=== PATIENT | male | born 1985 | race Caucasian/White ===

== ENCOUNTER 2023-06-05 05:36 | Emergency (ER) | payer OTHER | END 2023-06-05 06:00 | disposition home or self-care (01) | LOC: CSHERS 05:36 | DX: T14.8XXA Other injury of unspecified body region, initial encounter (principal); L29.9 Pruritus, unspecified; R21 Rash and other nonspecific skin eruption; F17.290 Nicotine dependence, other tobacco product, uncomplicated; W57.XXXA Bitten or stung by nonvenomous insect and other nonvenomous arthropods, initial encounter | CPT/HCPCS: 99282 ==

== ENCOUNTER 2023-06-26 15:20 | Emergency (ER) | payer OTHER ==
[2023-06-26 16:18] LABS: Bilirubin Neg (Negative); Blood, Urine 250 (Negative); Clarity Slightly Cloudy (Clear); Glucose, Urine (Dipstick) Normal (Negative); Ketone, Urine Negative (Negative); Leukocyte Negative (Negative); Nitrite Negative (Negative); Protein, Urine (Dipstick) 15 mg/dl (Neg-Trace); Specific Gravity, Urine 1.025 (1.005-1.030); Urobilinogen Normal mg/dL (Less than 2)
[2023-06-26 17:39] LABS: RBC/HPF 21-50 HPF (0-3)
[2023-06-26 17:40] LABS: Bacteria/HPF 1+ HPF (None Seen); CAUTI Indications for Culture Dysuria,urgency,freq; Squamous Epithelial 0-3 HPF (0-3); WBC/HPF 0-3 HPF (0-3)
[2023-06-26 17:41] LABS: Urine Culture Reflex No No
[2023-06-27 11:13] LABS: Chlam.trachomatis by PCR,Urine Not Detected (NotDetected); GC N.gonorrhoeae PCR,UrineVOID Not Detected (NotDetected)
== END 2023-06-26 17:21 | disposition home or self-care (01) ==
LOC: CSHERS 15:20
DX: R31.9 Hematuria, unspecified (principal); F17.290 Nicotine dependence, other tobacco product, uncomplicated
CPT/HCPCS: 74176; 81001; 87491; 87591